=== PATIENT | female | born 2000 | race Caucasian/White ===

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

== ENCOUNTER 2019-09-02 16:49 | Emergency (ER) | payer OTHER ==
[2019-09-02 16:58] VITALS: BP 118/70
== END 2019-09-02 17:29 | disposition home or self-care (01) ==
LOC: ED 16:49
DX: F11.23 Opioid dependence with withdrawal (principal); J45.909 Unspecified asthma, uncomplicated

== ENCOUNTER 2020-05-09 18:26 | Emergency (ER) | payer OTHER ==
[~2020-05-09] VITALS: Ht 167.6 cm; Wt 59.0 kg
[2020-05-09 19:19] LABS: PLATELET COUNT 246 x10^3mcL (179-408); RED CELL DISTRIBUTION WIDTH 13.1 % (12.3-17.7)
[2020-05-09 19:37] LABS: CARBON DIOXIDE 24.5 mmol/L (21-32); CHLORIDE SERUM 96 mmol/L (98-107); CREATININE SERUM 0.7 mg/dL (0.6-1.0); GFR1 > 60 mL/min; GLUCOSE SERUM 148 mg/dL (74-106); POTASSIUM SERUM 3.1 mmol/L (3.5-5.1); SODIUM SERUM 133 mmol/L (136-145)
[2020-05-09 19:41] LABS: ALBUMIN 4.3 g/dL (3.4-5.0); ALKALINE PHOSPHATASE 53 U/L (46-116); ALT/SGPT 37 U/L (14-59); AST/SGOT 32 U/L (15-37); BILIRUBIN TOTAL 1.2 mg/dL (0.20-1.00); LIPASE 86 IU/L (73-393); TOTAL PROTEIN, SERUM 7.8 g/dL (6.4-8.2)
[2020-05-09 22:07] VITALS: BP 114/65
[2020-05-09 22:07] LABS: AMPHETAMINE QUAL UR NONE DETECTED (See below)
== END 2020-05-09 23:43 | disposition home or self-care (01) ==
LOC: ED 18:26
PROVIDERS: Emergency Medicine
DX: F11.10 Opioid abuse, uncomplicated (principal); F41.9 Anxiety disorder, unspecified; R07.89 Other chest pain
CPT/HCPCS: 82962; G0480; J2310; J7030

== ENCOUNTER 2020-05-10 10:13 | Emergency (ER) | payer OTHER ==
[~2020-05-10] VITALS: Ht 172.7 cm; Wt 63.5 kg
[2020-05-10 10:16] VITALS: Ht 172.7 cm; Wt 63.5 kg
[2020-05-10 13:56] VITALS: BP 115/56
== END 2020-05-10 13:56 | disposition home or self-care (01) ==
LOC: ED 10:13
DX: F19.10 Other psychoactive substance abuse, uncomplicated (principal); J45.909 Unspecified asthma, uncomplicated
CPT/HCPCS: J7030

== ENCOUNTER 2020-05-10 19:16 | Emergency (ER) | payer OTHER ==
[~2020-05-10] VITALS: Ht 175.3 cm; Wt 68.0 kg
[2020-05-10 19:23] VITALS: Ht 175.3 cm; Wt 68.0 kg
[2020-05-10 20:59] VITALS: BP 118/61
[2020-05-10 21:04] LABS: CALCIUM 9.6 mg/dL (8.5-10.1); CARBON DIOXIDE 26.4 mmol/L (21-32); CHLORIDE SERUM 101 mmol/L (98-107); CREATININE SERUM 0.6 mg/dL (0.6-1.0); GFR1 > 60 mL/min; GLUCOSE SERUM 96 mg/dL (74-106); POTASSIUM SERUM 3.4 mmol/L (3.5-5.1); SODIUM SERUM 139 mmol/L (136-145)
== END 2020-05-10 20:59 | disposition left against medical advice (07) ==
LOC: ED 19:16
PROVIDERS: Emergency Medicine
DX: F11.10 Opioid abuse, uncomplicated (principal); Z20.822 Contact with and (suspected) exposure to COVID-19
CPT/HCPCS: G0480

== ENCOUNTER 2020-05-18 16:13 | Emergency (ER) | payer OTHER | END 2020-05-18 16:59 | disposition left against medical advice (07) | LOC: ED 16:13 | DX: Z53.21 Procedure and treatment not carried out due to patient leaving prior to being seen by health care provider (principal) ==

== ENCOUNTER 2020-06-02 13:32 | Emergency (ER) | payer OTHER ==
[~2020-06-02] VITALS: Ht 172.7 cm; Wt 59.4 kg
[2020-06-02 13:53] VITALS: Ht 172.7 cm; Wt 59.4 kg
[2020-06-02 16:04] VITALS: BP 109/53
[2020-06-05] MEDS ORDERED: PROMETHAZINE25 M3 PO (05:21)
[2020-06-05] MEDS ORDERED: PEPCID AC20 M2 PO (05:21)
== END 2020-06-02 16:04 | disposition home or self-care (01) ==
LOC: ED 13:32
DX: R07.89 Other chest pain (principal); M79.661 Pain in right lower leg; J45.909 Unspecified asthma, uncomplicated; M79.89 Other specified soft tissue disorders